=== PATIENT | male | born 1980 | race Caucasian/White ===

== ENCOUNTER 2018-11-17 12:14 | Inpatient (IN) ==
[2018-11-17] MEDS ORDERED: PIPERACILLIN/TAZOBACTAM 3,375 MG in SODIUM CHLORIDE 0.9% 100 ML IV SCH (14:31)
[2018-11-17] MEDS ORDERED: PROMETHAZINE 25 MG/1 ML VIAL IM PRN ×2 (14:31→20:17)
[2018-11-17] MEDS ORDERED: ONDANSETRON 4 MG/2 ML VIAL IV PRN ×2 (14:31→20:17)
[2018-11-17] MEDS ORDERED: LACTATED RINGERS 1,000 ML IV SCH (14:31)
[2018-11-17] MEDS ORDERED: ACETAMINOPHEN 325 MG TABLET PO PRN (14:31)
[2018-11-17] MEDS ORDERED: HYDROmorphone 2 MG/1 ML VIAL IV PRN (14:31)
[2018-11-17] MEDS ORDERED: INFLUENZA VIRUS VACCINE 0.5 ML SYRINGE IM ONE (14:41)
[2018-11-17 15:53] LABS: Basophils % 0.3 % (0.0-0.8); Hematocrit 45.3 VOL% (42.0-52.0); Hemoglobin 14.6 GM/DL (14.0-18.0); Immature Granulocytes % 0.3 %; Immature Granulocytes Absolute 0.04 #; Lymphocytes # 0.5 10*3/uL (1.4-4.0); Lymphocytes % 3.6 % (21.2-54.2); Mean Corpuscular HGB Conc 32.2 GM/DL (32-36); Mean Corpuscular Hemoglobin 30 PG (27-34); Mean Corpuscular Volume 92.8 FL (87-102); Monocytes # 0.9 10*3/uL (0.11-0.8); Monocytes % 6.2 % (1.7-12.7); Neutrophils # 13.4 10*3/uL (1.4-7.4); Neutrophils % 89.6 % (38.7-73.9); Platelet Count 184 T/CUMM (130-400); Red Blood Count 4.88 MC/CUMM (3.8-5.5); Red Cell Distribution Width 13.2 % (9.3-17.3)
[2018-11-17 16:16] LABS: Calcium 8.2 MG/DL (8.5-10.1); Osmolality,Calculated 277.7 MOS/KG (273-304); Potassium 4.1 MMOL/L (3.5-5.1)
[2018-11-17 16:35] LABS: Band Neutrophils 13 % (0-10); Lymphocytes 8 % (20-55); Platelet Estimate Adequate; Segmented Neutrophils 73 % (50-85); Total Cells Counted 100
[2018-11-17] MEDS ORDERED: cefOXitin 2,000 MG in SYRINGE 1 EACH IV ONE (17:47)
[2018-11-17] MEDS ORDERED: LIDOCAINE 1%/EPI INJ 20 ML VIAL ONE (18:20)
[2018-11-17] MEDS ORDERED: BUPIVACAINE 0.5% 50 ML VIAL ONE (18:20)
[2018-11-17] MEDS ORDERED: PHENYLEPHRINE DRIP 0 MG/0 ML PREMIX IV ONE (19:59)
[2018-11-17] MEDS ORDERED: PROPOFOL 200 MG/20 ML VIAL IV ONE (20:08)
[2018-11-17] MEDS ORDERED: PHENYLEPHRINE DRIP 20 MG/250 ML PREMIX IV ONE (20:08)
[2018-11-17] MEDS ORDERED: SEVOFLURANE 1 UNIT/15 MINUTE INH ONE (20:08)
[2018-11-17] MEDS ORDERED: SUCCINYLCHOLINE 200 MG/10 ML VIAL ONE (20:09)
[2018-11-17] MEDS ORDERED: MIDAZOLAM 2 MG/2 ML VIAL ONE (20:09)
[2018-11-17] MEDS ORDERED: fentaNYL 100 MCG/2 ML VIAL ONE (20:09)
[2018-11-17] MEDS ORDERED: LACTATED RINGERS 1,000 ML IV ONE ×2 (20:09→22:43)
[2018-11-17] MEDS ORDERED: ROCURONIUM 100 MG/10 ML VIAL IV ONE (20:09)
[2018-11-17] MEDS: LACTATED RINGERS 1,000 ML IV SCH (20:17)
[2018-11-17 20:37] LABS: ABG Base Excess 1.5 MMOL/L (-2.5-2.5); ABG HCO3 25.7 MMOL/L (20-26); ABG Oxygen Saturation 99.4 % (95-100); ABG PCO2 51.7 MM HG (35-48); ABG PH 7.349 (7.35-7.45); ABG TCO2 24.1 MMOL/L (23-27); Allen Test Positive; Pt O2 Delivery Device Ventilator
[2018-11-17] MEDS: PROPOFOL 1,000 MG/100 ML BOTTLE IV SCH (20:40)
[2018-11-17] MEDS: HYDROmorphone 2 MG/1 ML VIAL IV PRN (20:45)
[2018-11-17 20:53] LABS: Basophils # 0.1 10*3/uL (0.0-0.2); Basophils % 0.7 % (0.0-0.8); Hematocrit 47.4 VOL% (42.0-52.0); Hemoglobin 15.3 GM/DL (14.0-18.0); Immature Granulocytes % 0.2 %; Immature Granulocytes Absolute 0.02 #; Lymphocytes # 0.6 10*3/uL (1.4-4.0); Lymphocytes % 7.7 % (21.2-54.2); Mean Corpuscular HGB Conc 32.3 GM/DL (32-36); Mean Corpuscular Hemoglobin 31 PG (27-34); Mean Corpuscular Volume 94.4 FL (87-102); Monocytes # 0.6 10*3/uL (0.11-0.8); Monocytes % 6.6 % (1.7-12.7); Neutrophils # 7.1 10*3/uL (1.4-7.4); Neutrophils % 84.8 % (38.7-73.9); Platelet Count 185 T/CUMM (130-400); Red Blood Count 5.02 MC/CUMM (3.8-5.5); Red Cell Distribution Width 13.2 % (9.3-17.3)
[2018-11-17 20:59] LABS: White Blood Count 8.4 T/CUMM (4-12)
[2018-11-17 21:10] LABS: Blood Urea Nitrogen 17 MG/DL (7-18); Calcium 7.9 MG/DL (8.5-10.1); Glucose 130 MG/DL (74-106); Osmolality,Calculated 280.5 MOS/KG (273-304); Potassium 4.5 MMOL/L (3.5-5.1); Sodium 139 MMOL/L (136-145)
[2018-11-17 21:15] LABS: Lactic Acid 2.4 MMOL/L (0.4-2.0)
[2018-11-17 21:33] LABS: Band Neutrophils 3 % (0-10); Lymphocytes 9 % (20-55); Platelet Estimate Adequate; Segmented Neutrophils 84 % (50-85); Total Cells Counted 100
[2018-11-17] MEDS: PIPERACILLIN/TAZOBACTAM 3,375 MG in SODIUM CHLORIDE 0.9% 100 ML IV SCH (23:11)
[2018-11-18] MEDS ORDERED: LACTATED RINGERS 1,000 ML IV ONE ×2 (00:11→15:50)
[2018-11-18 03:29] LABS: Basophils # 0.1 10*3/uL (0.0-0.2); Basophils % 0.5 % (0.0-0.8); Eosinophils % 0.1 % (0.00-10.9); Hematocrit 40.5 VOL% (42.0-52.0); Hemoglobin 13.1 GM/DL (14.0-18.0); Immature Granulocytes % 0.4 %; Immature Granulocytes Absolute 0.04 #; Lymphocytes # 0.8 10*3/uL (1.4-4.0); Lymphocytes % 8.1 % (21.2-54.2); Mean Corpuscular HGB Conc 32.3 GM/DL (32-36); Mean Corpuscular Hemoglobin 31 PG (27-34); Mean Corpuscular Volume 94.6 FL (87-102); Monocytes # 0.8 10*3/uL (0.11-0.8); Monocytes % 8.2 % (1.7-12.7); Neutrophils # 7.9 10*3/uL (1.4-7.4); Neutrophils % 82.7 % (38.7-73.9); Platelet Count 160 T/CUMM (130-400); Red Blood Count 4.28 MC/CUMM (3.8-5.5); Red Cell Distribution Width 13.3 % (9.3-17.3); White Blood Count 9.6 T/CUMM (4-12)
[2018-11-18] MEDS: PROPOFOL 1,000 MG/100 ML BOTTLE IV SCH ×2 (03:29→11:12)
[2018-11-18 03:34] LABS: Allen Test Positive; Pt O2 Delivery Device Ventilator
[2018-11-18 03:37] LABS: ABG Base Excess 3.6 MMOL/L (-2.5-2.5); ABG HCO3 27.7 MMOL/L (20-26); ABG Oxygen Saturation 99.1 % (95-100); ABG PCO2 47.4 MM HG (35-48); ABG TCO2 25.4 MMOL/L (23-27)
[2018-11-18] MEDS: HYDROmorphone 2 MG/1 ML VIAL IV PRN ×8 (03:45→22:59)
[2018-11-18 03:47] LABS: Calcium 7.4 MG/DL (8.5-10.1); Osmolality,Calculated 278.7 MOS/KG (273-304); Potassium 4.8 MMOL/L (3.5-5.1)
[2018-11-18 03:55] LABS: Lactic Acid 1.5 MMOL/L (0.4-2.0)
[2018-11-18] MEDS: LACTATED RINGERS 1,000 ML IV SCH ×3 (04:02→18:19)
[2018-11-18 04:40] LABS: Band Neutrophils 22 % (0-10); Metamyelocytes 4 %; Total Cells Counted 100
[2018-11-18 04:41] LABS: Hypochromasia Slight; Lymphocytes 9 % (20-55); Platelet Estimate Normal; Segmented Neutrophils 61 % (50-85)
[2018-11-18] MEDS ORDERED: LACTATED RINGERS 250 ML IV ONE (07:15)
[2018-11-18] MEDS ORDERED: ENOXAPARIN 40 MG/0.4 ML SYRINGE SUBCUT SCH (07:19)
[2018-11-18] MEDS ORDERED: PANTOPRAZOLE 40 MG TABLET PO SCH (09:00)
[2018-11-18] MEDS: PIPERACILLIN/TAZOBACTAM 3,375 MG in SODIUM CHLORIDE 0.9% 100 ML IV SCH ×2 (09:00→16:27)
[2018-11-18] MEDS: CETIRIZINE 10 MG TABLET PO SCH (10:39)
[2018-11-18] MEDS: PANTOPRAZOLE 40 MG VIAL IV SCH (11:20)
[2018-11-18] MEDS ORDERED: PROPOFOL 200 MG/20 ML VIAL IV ONE (15:48)
[2018-11-18] MEDS ORDERED: GLYCOPYRROLATE 0.4 MG/2 ML VIAL ONE (15:49)
[2018-11-18] MEDS ORDERED: SEVOFLURANE 1 UNIT/15 MINUTE INH ONE (15:49)
[2018-11-18] MEDS ORDERED: KETOROLAC 30 MG/1 ML VIAL ONE (15:49)
[2018-11-18] MEDS ORDERED: DEXAMETHASONE 10 MG/1 ML VIAL ONE (15:49)
[2018-11-18] MEDS ORDERED: MIDAZOLAM 2 MG/2 ML VIAL ONE (15:49)
[2018-11-18] MEDS ORDERED: ONDANSETRON 4 MG/2 ML VIAL ONE (15:49)
[2018-11-18] MEDS ORDERED: ETOMIDATE 40 MG/20 ML VIAL IV ONE (15:49)
[2018-11-18] MEDS ORDERED: PHENYLEPHRINE 1 MG/10 ML SYRINGE IV ONE (15:50)
[2018-11-18] MEDS ORDERED: ROCURONIUM 100 MG/10 ML VIAL IV ONE (15:50)
[2018-11-18] MEDS ORDERED: NEOSTIGMINE 10 MG/10 ML VIAL ONE (15:50)
[2018-11-18] MEDS: ENOXAPARIN 40 MG/0.4 ML SYRINGE SUBCUT SCH (15:56)
[2018-11-18] MEDS: clonazePAM 0.5 MG TABLET PO SCH (20:48)
[2018-11-19] MEDS: PIPERACILLIN/TAZOBACTAM 3,375 MG in SODIUM CHLORIDE 0.9% 100 ML IV SCH ×4 (00:28→23:41)
[2018-11-19] MEDS: HYDROmorphone 2 MG/1 ML VIAL IV PRN ×5 (01:00→09:30)
[2018-11-19] MEDS: LACTATED RINGERS 1,000 ML IV SCH ×2 (02:56→06:25)
[2018-11-19 03:59] LABS: Basophils % 0.2 % (0.0-0.8); Hematocrit 32.7 VOL% (42.0-52.0); Hemoglobin 10.6 GM/DL (14.0-18.0); Immature Granulocytes % 0.4 %; Immature Granulocytes Absolute 0.04 #; Lymphocytes # 0.5 10*3/uL (1.4-4.0); Lymphocytes % 4.7 % (21.2-54.2); Mean Corpuscular HGB Conc 32.4 GM/DL (32-36); Mean Corpuscular Hemoglobin 31 PG (27-34); Mean Corpuscular Volume 95.3 FL (87-102); Mean Platelet Volume 10.3 FL (9.6-12.0); Monocytes # 0.8 10*3/uL (0.11-0.8); Monocytes % 7.5 % (1.7-12.7); Neutrophils # 8.9 10*3/uL (1.4-7.4); Neutrophils % 87.2 % (38.7-73.9); Platelet Count 159 T/CUMM (130-400); Red Blood Count 3.43 MC/CUMM (3.8-5.5); White Blood Count 10.3 T/CUMM (4-12)
[2018-11-19 04:04] LABS: ABG Base Excess 5.9 MMOL/L (-2.5-2.5); ABG HCO3 29.8 MMOL/L (20-26); ABG Oxygen Saturation 98.3 % (95-100); ABG PCO2 51.7 MM HG (35-48); ABG PH 7.399 (7.35-7.45); ABG TCO2 28.6 MMOL/L (23-27); Allen Test Positive
[2018-11-19 04:17] LABS: Calcium 7.8 MG/DL (8.5-10.1); Osmolality,Calculated 281.4 MOS/KG (273-304); Potassium 4.3 MMOL/L (3.5-5.1)
[2018-11-19 04:28] LABS: Band Neutrophils 17 % (0-10); Lymphocytes 7 % (20-55); Metamyelocytes 4 %; Platelet Estimate Normal; Reactive Lymphocytes 1+; Segmented Neutrophils 65 % (50-85); Total Cells Counted 100
[2018-11-19 04:29] LABS: Hypochromasia 1+
[2018-11-19 07:54] LABS: Basophils % 0.1 % (0.0-0.8); Eosinophils % 0.1 % (0.00-10.9); Hematocrit 33.3 VOL% (42.0-52.0); Hemoglobin 10.7 GM/DL (14.0-18.0); Immature Granulocytes % 0.6 %; Immature Granulocytes Absolute 0.06 #; Lymphocytes # 0.5 10*3/uL (1.4-4.0); Lymphocytes % 4.9 % (21.2-54.2); Mean Corpuscular HGB Conc 32.1 GM/DL (32-36); Mean Corpuscular Hemoglobin 31 PG (27-34); Mean Corpuscular Volume 94.9 FL (87-102); Mean Platelet Volume 9.7 FL (9.6-12.0); Monocytes # 0.8 10*3/uL (0.11-0.8); Monocytes % 7.4 % (1.7-12.7); Neutrophils # 8.9 10*3/uL (1.4-7.4); Neutrophils % 86.9 % (38.7-73.9); Platelet Count 148 T/CUMM (130-400); Red Blood Count 3.51 MC/CUMM (3.8-5.5); White Blood Count 10.2 T/CUMM (4-12)
[2018-11-19 08:16] LABS: Band Neutrophils 9 % (0-10); Hypochromasia Slight; Lymphocytes 7 % (20-55); Microcytosis Slight; Segmented Neutrophils 79 % (50-85); Total Cells Counted 100
[2018-11-19 08:17] LABS: Calcium 7.5 MG/DL (8.5-10.1); Osmolality,Calculated 278.5 MOS/KG (273-304); Platelet Estimate Adequate
[2018-11-19] MEDS: clonazePAM 0.5 MG TABLET PO SCH (09:35)
[2018-11-19] MEDS: CETIRIZINE 10 MG TABLET PO SCH (09:43)
[2018-11-19] MEDS: PANTOPRAZOLE 40 MG VIAL IV SCH (09:44)
[2018-11-19] MEDS ORDERED: NALOXONE 0.4 MG/ML VIAL IV PRN (10:40)
[2018-11-19] MEDS: KETOROLAC 30 MG/1 ML VIAL IV SCH ×3 (11:08→23:41)
[2018-11-19] MEDS ORDERED: HYDROmorphone 2 MG/1 ML VIAL IV ONE (11:55)
[2018-11-19] MEDS ORDERED: HYDROmorphone 2 MG/1 ML VIAL ONE (11:57)
[2018-11-19] MEDS: HYDROmorphone PCA 30 MG/30 ML SYRINGE IV SCH (14:29)
[2018-11-19] MEDS: ENOXAPARIN 40 MG/0.4 ML SYRINGE SUBCUT SCH (14:31)
[2018-11-19] MEDS: DEXT 5% NACL 0.45% KCL 40 MEQ 40 MEQ/1,000 ML BAG IV SCH (16:09)
[2018-11-19] MEDS ORDERED: clonazePAM 0.5 MG TABLET PO SCH (21:00)
[2018-11-20 05:35] LABS: Basophils % 0.5 % (0.0-0.8); Eosinophils # 0.2 10*3/uL (0.0-0.87); Eosinophils % 2.6 % (0.00-10.9); Hematocrit 31.7 VOL% (42.0-52.0); Immature Granulocytes % 1.6 %; Immature Granulocytes Absolute 0.12 #; Lymphocytes # 0.8 10*3/uL (1.4-4.0); Lymphocytes % 11.1 % (21.2-54.2); Mean Corpuscular HGB Conc 31.5 GM/DL (32-36); Mean Corpuscular Hemoglobin 30 PG (27-34); Mean Corpuscular Volume 95.2 FL (87-102); Mean Platelet Volume 9.9 FL (9.6-12.0); Monocytes # 0.5 10*3/uL (0.11-0.8); Neutrophils # 5.9 10*3/uL (1.4-7.4); Neutrophils % 77.2 % (38.7-73.9); Platelet Count 196 T/CUMM (130-400); Red Blood Count 3.33 MC/CUMM (3.8-5.5); White Blood Count 7.6 T/CUMM (4-12)
[2018-11-20] MEDS: DEXT 5% NACL 0.45% KCL 40 MEQ 40 MEQ/1,000 ML BAG IV SCH ×3 (05:42→20:18)
[2018-11-20] MEDS: KETOROLAC 30 MG/1 ML VIAL IV SCH ×4 (05:42→23:45)
[2018-11-20 05:44] LABS: Calcium 7.8 MG/DL (8.5-10.1); Osmolality,Calculated 276.5 MOS/KG (273-304); Potassium 3.5 MMOL/L (3.5-5.1)
[2018-11-20 06:15] LABS: Eosinophils 2 % (0-10); Lymphocytes 12 % (20-55); Platelet Estimate Adequate; Polychromasia Slight; Segmented Neutrophils 84 % (50-85); Total Cells Counted 100
[2018-11-20] MEDS: DOCUSATE SODIUM 100 MG CAPSULE PO SCH ×2 (10:26→20:17)
[2018-11-20] MEDS: PANTOPRAZOLE 40 MG VIAL IV SCH (10:27)
[2018-11-20] MEDS: clonazePAM 0.5 MG TABLET PO SCH ×2 (10:27→20:16)
[2018-11-20] MEDS: CETIRIZINE 10 MG TABLET PO SCH (10:29)
[2018-11-20] MEDS: PIPERACILLIN/TAZOBACTAM 3,375 MG in SODIUM CHLORIDE 0.9% 100 ML IV SCH (11:29)
[2018-11-20] MEDS: ENOXAPARIN 40 MG/0.4 ML SYRINGE SUBCUT SCH (14:11)
[2018-11-20] MEDS: HYDROmorphone PCA 30 MG/30 ML SYRINGE IV SCH (23:42)
[2018-11-21] MEDS: DEXT 5% NACL 0.45% KCL 40 MEQ 40 MEQ/1,000 ML BAG IV SCH (03:14)
[2018-11-21] MEDS: KETOROLAC 30 MG/1 ML VIAL IV SCH ×4 (05:43→23:07)
[2018-11-21] MEDS: clonazePAM 0.5 MG TABLET PO SCH ×2 (08:18→20:39)
[2018-11-21] MEDS: CETIRIZINE 10 MG TABLET PO SCH (08:18)
[2018-11-21] MEDS: PANTOPRAZOLE 40 MG VIAL IV SCH (08:18)
[2018-11-21] MEDS: DOCUSATE SODIUM 100 MG CAPSULE PO SCH ×2 (08:18→20:39)
[2018-11-21] MEDS: ENOXAPARIN 40 MG/0.4 ML SYRINGE SUBCUT SCH (15:08)
[2018-11-21] MEDS: HYDROmorphone PCA 30 MG/30 ML SYRINGE IV SCH (19:20)
[2018-11-22] MEDS: KETOROLAC 30 MG/1 ML VIAL IV SCH ×4 (05:44→22:43)
[2018-11-22] MEDS ORDERED: INFLUENZA VIRUS VACCINE 0.5 ML SYRINGE IM ONE (08:00)
[2018-11-22] MEDS: CETIRIZINE 10 MG TABLET PO SCH (09:40)
[2018-11-22] MEDS: clonazePAM 0.5 MG TABLET PO SCH ×2 (09:40→20:26)
[2018-11-22] MEDS: DOCUSATE SODIUM 100 MG CAPSULE PO SCH ×2 (09:40→20:26)
[2018-11-22] MEDS: HYDROmorphone PCA 30 MG/30 ML SYRINGE IV SCH ×2 (11:47→15:10)
[2018-11-22] MEDS ORDERED: HYDROmorphone 2 MG/1 ML VIAL IV PRN (12:30)
[2018-11-22] MEDS: ENOXAPARIN 40 MG/0.4 ML SYRINGE SUBCUT SCH (15:09)
[2018-11-23] MEDS: KETOROLAC 30 MG/1 ML VIAL IV SCH ×4 (04:08→23:17)
[2018-11-23] MEDS: CETIRIZINE 10 MG TABLET PO SCH (08:00)
[2018-11-23] MEDS: clonazePAM 0.5 MG TABLET PO SCH ×2 (08:00→20:58)
[2018-11-23] MEDS: DOCUSATE SODIUM 100 MG CAPSULE PO SCH ×2 (08:00→20:58)
[2018-11-23] MEDS: NEOMYCIN/POLYMYXIN/BACITRACIN OINT 0.9 GM PACK TOP SCH ×2 (13:46→20:58)
[2018-11-23] MEDS: ENOXAPARIN 40 MG/0.4 ML SYRINGE SUBCUT SCH (13:50)
[2018-11-24] MEDS: KETOROLAC 30 MG/1 ML VIAL IV SCH (04:47)
[2018-11-24] MEDS: clonazePAM 0.5 MG TABLET PO SCH (10:14)
[2018-11-24] MEDS: CETIRIZINE 10 MG TABLET PO SCH (10:15)
[2018-11-24] MEDS: DOCUSATE SODIUM 100 MG CAPSULE PO SCH (10:15)
[2018-11-24] MEDS: NEOMYCIN/POLYMYXIN/BACITRACIN OINT 0.9 GM PACK TOP SCH (10:15)
[2018-11-24 11:04] VITALS: BP 135/82
== END 2018-11-24 12:02 | disposition home or self-care (01) | DRG 329 ==
LOC: N.3E 14:01 → N.ICU 20:05 → N.3E 11-19 12:14
PROVIDERS: ADMIT Surgery; ATTEND Surgery